=== PATIENT | male | born 1955 | race Caucasian/White ===

== ENCOUNTER 2024-03-03 08:47 | Outpatient (AMB) | payer MEDICARE, SELFPAY ==
--- NOTE | 2024-03-03 08:55 | MHC.OFFVIS ---
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 Pt has seen Dr. Gould in the past at [facility]. Pt states he had his right knee replaced years ago by Dr. Gould. Pt states his left knee pain started about 2 months ago with no known injury. Pt states he has more pain when walking especially down stairs. He has tried Tylenol and ibuprofen which gave him only mild relief. He has also done physical therapy exercises which aggravated his pain. He wishes to hold off on left total knee replacement surgery for as long as possible. Allergies No Known Allergies Allergy (Verified 03/03/24 09:05) Medication List - Last Reconciled 03/04/24 by Fuad Gould MD hydrochlorothiazide 25 mg PO DAILY losartan 25 mg PO DAILY meloxicam 15 mg PO DAILY PRN 3 months omeprazole 20 mg PO DAILY pravastatin 20 mg PO DAILY Physical Exam Const Other: Well-nourished well-developed very friendly male awake alert and oriented x3 in no acute distress Extrem Other: Bilateral lower extremity examination shows good capillary refill, no skin lesions noted, normal sensation light touch Left knee examination shows a moderate effusion, palpable crepitus with range of motion, pain with range of motion, range of motion from -3 degrees to 115 degrees, no instability Office Procedures Joint Injection/Aspiration Joint Injection/Aspiration Primary Site: left knee Prep: site was prepped using aseptic technique Injected: 40 mg of, DepoMedrol and 1% plain lidocaine Procedure: The patient tolerated the procedure well Coding 38240 - Large joint Procedure code (CPT) selection complete Results Reviewed Results Reviewed: X-rays of the patient's left knee show joint space narrowing, subchondral sclerosis most significant in the medial compartment, no acute bony abnormalities Assessment & Plan Assessment & Plan (1) Left knee pain: Code(s): M25.562 - Pain in left knee Category: Medical Plan Mr. Valero presents with left knee pain due to degenerative joint disease. I had a lengthy discussion with the patient regarding the treatment options. The risks and benefits of a left knee cortisone injection were discussed at length with the patient. The patient wished to proceed. Prior to the injection 15 cc of clear fluid were aspirated from his left knee. He tolerated the injection well. He will continue with his activity modifications. I did give him a prescription for meloxicam. Will follow up with me on an as-needed basis should his symptoms not plateau at an unacceptable level over the next few months. Feel free to call me at any time should questions regarding his orthopedic management arise. I spent 21 minutes in reviewing the patient's records and imaging studies, seeing the patient and documenting in the medical record. Orders: Orders XR knee LT 3V 03/03/24 M25.562 - Pain in left knee XR knee RT 1V 03/03/24 M25.562 - Pain in left knee AMB Joint Injection/Aspiration 03/03/24 M25.562 - Pain in left knee Medications: New meloxicam 15 mg PO DAILY PRN 90 tabs 3RF pain 3 months Coding Level of Care Code Est Pt Level 3 (51895) Diagnoses Left knee pain M25.562 CPT Codes Coding - 73216 Large joint: 66011 - Large joint ([id number])
== END 2024-03-03 09:38 | disposition home or self-care (01) ==
PROVIDERS: PCP Physician Assistant Medical; Visit Provider Orthopaedic Surgery
DX: M25.562 Pain in left knee (principal)
CPT/HCPCS: 20610; 99213

== ENCOUNTER 2024-03-03 10:44 | Outpatient (REF) | payer MEDICARE, SELFPAY ==
--- NOTE | ~2024-03-03 | XR_ITS ---
EXAMINATION: XR KNEE, LEFT CLINICAL INFORMATION: Pain. COMPARISON: None available. TECHNIQUE: AP, lateral and sunrise views of the left knee are submitted. FINDINGS: Bony mineralization is normal. There is marked asymmetric narrowing of medial joint space compartment. The lateral and patellofemoral joint space compartments are well-maintained. There is minimal peripheral osteophyte formation of the medial and patellofemoral compartments. A small enthesophyte is seen at the upper pole of patella at quadriceps tendon insertion. There is chondrocalcinosis. No fracture or dislocation is seen. There is a mild varus configuration. There is a small joint effusion. There is no foreign body. XR/XR knee LT 3V IMPRESSION: 1. There is marked arthritic change of the medial joint space compartment of the left knee, and mild osteoarthritic changes seen of the patellofemoral compartment. Existing tube is in mild varus configuration. 3. There is a small joint effusion. 4. There is chondrocalcinosis, which can be associated with gout, CPPD or hypercalcemia. Electronically signed by: Cholo Ellis MD 03/30/2024 07:27 PM EDT
== END 2024-03-03 10:45 | disposition home or self-care (01) ==
LOC: HO.HOSX 10:44
PROVIDERS: Visit Provider Orthopaedic Surgery
DX: M25.562 Pain in left knee (principal); M17.12 Unilateral primary osteoarthritis, left knee; M11.262 Other chondrocalcinosis, left knee
CPT/HCPCS: 20610; 73562; 99212; J1010

== ENCOUNTER 2024-06-02 08:24 | Outpatient (AMB) | payer MEDICARE, SELFPAY ==
--- NOTE | 2024-06-02 08:25 | A.OFFVIS_ITS ---
Intake Visit Reasons: OV - f/u Left knee pain , Right shoulder pain and weakness Intake Note: Vishal is a 69 year old male who presents with complaints of progressively worsening right shoulder pain and weakness. The patient states that he underwent right shoulder arthroscopic surgery several years ago. He got good relief from that surgery initially. Over the last 2 years his right shoulder pain and weakness have gotten worse. He was seen by another orthopedic surgeon who told him that he needs ?shoulder replacement surgery?. The patient has done physical therapy which aggravated his pain. He has also tried Tylenol and anti- inflammatory medicines which gave him minimal relief. The patient did have a cortisone injection given into his left knee on 03/03/2024. He got minimal relief from that injection. He describes his left knee pain as sharp in nature. He did undergo right total knee replacement surgery several years ago. He denies any pain in his right knee. Allergies No Known Allergies Allergy (Verified 06/02/24 08:30) Medication List - Last Reconciled 06/02/24 by Fuad Gould MD hydrochlorothiazide 25 mg PO DAILY losartan 25 mg PO DAILY meloxicam 15 mg PO DAILY PRN 3 months omeprazole 20 mg PO DAILY pravastatin 20 mg PO DAILY Physical Exam Const Other: Well-nourished well-developed very friendly male awake alert and oriented x3 in no acute distress Extrem Other: Bilateral upper extremity examination shows good capillary refill, no skin lesions noted, normal sensation light touch Right shoulder examination shows decreased range of motion when compared to his left shoulder, 4/5 strength with supraspinatus testing, positive impingement signs, no instability Left knee examination shows a minimal effusion, palpable crepitus with range of motion, pain with range of motion, no instability Results Reviewed Results Reviewed: X-rays of the patient's right shoulder taken previously show glenohumeral joint degenerative changes, a type 2 acromion, no acute bony abnormalities X-rays of the patient's left knee taken previously show joint space narrowing, subchondral sclerosis, no acute bony abnormalities Assessment & Plan Assessment & Plan (1) Right shoulder pain: Code(s): M25.511 - Pain in right shoulder Category: Medical (2) Osteoarthritis of left knee: Code(s): M17.12 - Unilateral primary osteoarthritis, left knee Category: Medical Plan Mr. Valero presents with progressively worsening right shoulder pain and weakness most likely due to a full-thickness rotator cuff tear. Thus, I will send the patient for an MRI of his right shoulder for further evaluation. The patient also has left knee pain due to osteoarthritis. He has failed the last 3 months of conservative treatment which has included a home exercise program, topical creams, Tylenol and meloxicam as well as a cortisone injection which gave him no relief. Thus, I will see whether or not the patient's insurance company will cover a viscosupplementation injection, such as Durolane. The patient will contact me prior to his follow-up appointment should any questions or concerns arise. Feel free to call me at any time should questions regarding his orthopedic management arise. I spent 22 minutes in reviewing the patient's records and imaging studies, seeing the patient and documenting in the medical record. Orders: Orders MR shoulder RT wo con Today M25.511 - Pain in right shoulder Coding Level of Care Code Est Pt Level 3 (36604) Complex EM visit Add On G2211 Diagnoses Right shoulder pain M25.511 Osteoarthritis of left knee M17.12
== END 2024-06-02 08:55 | disposition home or self-care (01) ==
PROVIDERS: PCP Physician Assistant Medical; Visit Provider Orthopaedic Surgery
DX: M25.511 Pain in right shoulder (principal); M17.12 Unilateral primary osteoarthritis, left knee
CPT/HCPCS: 99213; G2211

== ENCOUNTER → 2024-06-02 08:24 | Outpatient (BNVA) | payer MEDICARE, SELFPAY | PROVIDERS: PCP Physician Assistant Medical; Visit Provider Orthopaedic Surgery | DX: M25.511 Pain in right shoulder (principal); M17.12 Unilateral primary osteoarthritis, left knee | CPT/HCPCS: 99212 ==

== ENCOUNTER 2024-07-19 09:25 | Outpatient (AMB) | payer MEDICARE, SELFPAY ==
--- NOTE | 2024-07-19 09:28 | A.OFFVIS_ITS ---
Vital Signs 07/19/24 09:34 Height 6 ft Weight 206 lb BMI 27.9 Intake Visit Reasons: Inj- Left knee Euflexxa #1 Intake Note: Vishal is a 69 year old male who presents with complaints of progressively worsening left knee pain. He did undergo right total knee replacement surgery several years ago. He denies any pain in his right knee. He describes his left knee pain as sharp and severe in nature. He has had cortisone injections in the past. The most recent cortisone injection gave him no relief. Has tried physical therapy which aggravated his pain. He has also tried Tylenol and anti- inflammatory medicines which gave him minimal relief. At this point his left knee pain is interfering with his activities of daily living and his ability to sleep well through the night. Allergies No Known Allergies Allergy (Verified 07/19/24 09:34) Medication List - Last Reconciled 07/19/24 by Fuad Gould MD hydrochlorothiazide 25 mg PO DAILY losartan 25 mg PO DAILY meloxicam 15 mg PO DAILY PRN 3 months omeprazole 20 mg PO DAILY pravastatin 20 mg PO DAILY Physical Exam Vital Signs: BMI result Body Mass Index 27.9 Const Other: Well-nourished well-developed very friendly male awake alert and oriented x3 in no acute distress Extrem Other: Bilateral lower extremity examination shows good capillary refill, no skin lesions noted, normal sensation light touch Left knee examination shows a minimal effusion, palpable crepitus with range of motion, pain with range of motion, no instability Office Procedures AMB Joint Injection/Aspiration Joint Injection/Aspiration Primary Site: left knee Prep: site was prepped using aseptic technique Injected: 20 mg of (Euflexxa viscosupplementation) and 1% plain lidocaine Procedure: The patient tolerated the procedure well Coding 05826 - Large joint Procedure code (CPT) selection complete Results Reviewed Results Reviewed: X-rays of the patient's left knee taken previously show joint space narrowing, subchondral sclerosis, no acute bony abnormalities Assessment & Plan Assessment & Plan (1) Osteoarthritis of left knee: Code(s): M17.12 - Unilateral primary osteoarthritis, left knee Category: Medical Plan Mr. Valero presents with progressively worsening left knee pain due to osteoarthritis. The risks and benefits of a series of Euflexxa viscosupplementation injections were discussed at length with the patient. The patient wished to proceed. He tolerated the 1st injection well. He will continue with his home exercise program. He will follow up next week as scheduled. Feel free to call me at any time should questions regarding his orthopedic management arise. I spent 21 minutes in reviewing the patient's records and imaging studies, seeing the patient and documenting in the medical record. Orders: Orders XR shoulder LT min 2V 07/26/24 M25.512 - Pain in left shoulder XR shoulder RT min 2V 07/26/24 M25.511 - Pain in right shoulder AMB Joint Injection/Aspiration Today M17.12 - Unilateral primary osteoarthritis, left knee Coding Level of Care Code Est Pt Level 3 (45119) Complex EM visit Add On G2211 Diagnoses Osteoarthritis of left knee M17.12 CPT Codes Coding - 36957 Large joint: 34095 - Large joint ([id number])
[2024-07-19 09:34] VITALS: BMI 27.9
== END 2024-07-19 10:10 | disposition home or self-care (01) ==
PROVIDERS: PCP Physician Assistant Medical; Visit Provider Orthopaedic Surgery
DX: M17.12 Unilateral primary osteoarthritis, left knee (principal)
CPT/HCPCS: 20610; 99213

== ENCOUNTER → 2024-07-19 09:25 | Outpatient (BNVA) | payer MEDICARE, SELFPAY | PROVIDERS: PCP Physician Assistant Medical; Visit Provider Orthopaedic Surgery | DX: M17.12 Unilateral primary osteoarthritis, left knee (principal) | CPT/HCPCS: 20610; 99212; J2003; J7323 ==

== ENCOUNTER 2024-07-26 08:32 | Outpatient (AMB) | payer MEDICARE, SELFPAY ==
--- NOTE | 2024-07-26 08:37 | MHC.OFFVIS ---
Vital Signs 07/26/24 08:40 Height 6 ft Weight 206 lb BMI 27.9 Intake Visit Reasons: Inj- Left knee Euflexxa #2, Bilateral shoulder pains Intake Note: Vishal is a 69 year old male who presents with complaints of progressively worsening bilateral shoulder pains. He describes his pains as sharp in nature. He did have a Euflexxa injection given into his left knee at his last visit. He got fairly good relief from that injection. He has done physical therapy exercises for both of his shoulders which aggravated his pain. The patient reports weakness when lifting his hands above shoulder height. His shoulder pains have gotten worse over the last few years in spite of continued non operative treatments. He has failed the last 6 weeks of conservative treatment which has included physical therapy exercises, Tylenol and anti-inflammatory medicines. At this point his shoulder pains are interfering with his activities of daily living and his ability to sleep well through the night. The patient did undergo right shoulder arthroscopic surgery several years ago. He got minimal relief from that procedure. At this point is right shoulder pain is more bothersome than his left. Allergies No Known Allergies Allergy (Verified 07/26/24 08:40) Medication List - Last Reconciled 07/26/24 by Fuad Gould MD hydrochlorothiazide 25 mg PO DAILY losartan 25 mg PO DAILY meloxicam 15 mg PO DAILY PRN 3 months omeprazole 20 mg PO DAILY pravastatin 20 mg PO DAILY Physical Exam Vital Signs: BMI result Body Mass Index 27.9 Const Other: Well-nourished well-developed very friendly male awake alert and oriented x3 in no acute distress Extrem Other: Left knee examination shows a moderate effusion, palpable crepitus with range of motion, pain with range of motion, no instability Bilateral shoulder examination shows forward flexion to 120 degrees, external rotation to 20 degrees, pain with range of motion, no instability Office Procedures AMB Joint Injection/Aspiration Joint Injection/Aspiration Primary Site: left knee Prep: site was prepped using aseptic technique Injected: 20 mg of (Euflexxa viscosupplementation) and 1% plain lidocaine Procedure: The patient tolerated the procedure well Coding 67943 - Large joint Procedure code (CPT) selection complete Results Reviewed Results Reviewed: X-rays of the patient's bilateral shoulders taken today show glenohumeral joint degenerative changes, no acute bony abnormalities Assessment & Plan Assessment & Plan (1) Left shoulder pain: Code(s): M25.512 - Pain in left shoulder Category: Medical (2) Osteoarthritis of left knee: Code(s): M17.12 - Unilateral primary osteoarthritis, left knee Category: Medical (3) Right shoulder pain: Code(s): M25.511 - Pain in right shoulder Category: Medical Plan Mr. Valero presents with progressively worsening left knee pain due to osteoarthritis. The risks and benefits of a 2nd Euflexxa injection were discussed at length with the patient. The patient wished to proceed. Prior to the injection I aspirated 10 cc of clear fluid from his left knee. He tolerated the injection well. He also has progressively worsening right shoulder pain and stiffness due to end-stage glenohumeral joint arthritis. He is interested in getting more information regarding reverse total shoulder replacement surgery. Thus, I will have him evaluated by my partner, Dr. Davalos. The patient will follow-up as instructed. Feel free to call me at any time should questions regarding his orthopedic management arise. I spent 21 minutes in reviewing the patient's records and imaging studies, seeing the patient and documenting in the medical record. Orders: Orders AMB Joint Injection/Aspiration Today M25.512 - Pain in left shoulder Coding Level of Care Code Est Pt Level 3 (59655) Complex EM visit Add On G2211 Diagnoses Left shoulder pain M25.512 Osteoarthritis of left knee M17.12 Right shoulder pain M25.511 CPT Codes Coding - 41200 Large joint: 10034 - Large joint ([id number])
[2024-07-26 08:40] VITALS: BMI 27.9
== END 2024-07-26 09:09 | disposition home or self-care (01) ==
PROVIDERS: PCP Physician Assistant Medical; Visit Provider Orthopaedic Surgery
DX: M17.12 Unilateral primary osteoarthritis, left knee (principal); M25.512 Pain in left shoulder; M25.511 Pain in right shoulder
CPT/HCPCS: 20610; 99213

== ENCOUNTER 2024-07-26 09:43 | Outpatient (REF) | payer MEDICARE, SELFPAY ==
--- NOTE | ~2024-07-26 | XR_ITS ---
EXAMINATION: XR SHOULDER 2 OR MORE VIEWS RIGHT HISTORY: M25.511 - Pain in right shoulder COMPARISON: There are no prior studies available for comparison. FINDINGS: Two views of the right shoulder are submitted. Osseous mineralization is normal. There is no fracture or dislocation. There is severe osteoarthritis of the glenohumeral joint with joint space narrowing and osteophyte formation. The AC joint space is preserved. Multiple corticated osseous densities are seen surrounding the shoulder, consistent with loose bodies. XR/XR shoulder RT min 2V IMPRESSION: Severe osteoarthritis of the glenohumeral joint. Multiple loose bodies. Electronically signed by: Vu Medina MD 07/28/2024 01:55 PM EST
--- NOTE | ~2024-07-26 | XR_ITS ---
EXAMINATION: XR SHOULDER 2 OR MORE VIEWS LEFT HISTORY: M25.512 - Pain in left shoulder COMPARISON: There are no prior studies available for comparison. FINDINGS: Two views of the left shoulder are submitted. Osseous mineralization is normal. There is no fracture or dislocation. There is mild glenohumeral and acromioclavicular joint space narrowing. Multiple well-corticated osseous densities are noted about the shoulder consistent with loose bodies. XR/XR shoulder LT min 2V IMPRESSION: Mild glenohumeral and acromioclavicular joint space narrowing. Multiple loose bodies. Electronically signed by: Vu Medina MD 07/28/2024 01:58 PM EST
== END 2024-07-26 09:44 | disposition home or self-care (01) ==
LOC: HO.HOSX 09:43
PROVIDERS: Visit Provider Orthopaedic Surgery
DX: M17.12 Unilateral primary osteoarthritis, left knee (principal); M25.511 Pain in right shoulder; M25.512 Pain in left shoulder; M24.012 Loose body in left shoulder; M19.012 Primary osteoarthritis, left shoulder; M19.011 Primary osteoarthritis, right shoulder
CPT/HCPCS: 20610; 73030; 99212; J2003; J7323

== ENCOUNTER 2024-08-02 08:33 | Outpatient (AMB) | payer MEDICARE, SELFPAY ==
--- NOTE | 2024-08-02 08:38 | MHC.OFFVIS ---
Vital Signs 08/02/24 08:44 Height 6 ft Weight 206 lb BMI 27.9 Intake Visit Reasons: Inj- Left knee Euflexxa #3 Intake Note: Vishal is a 69 year old male who presents today for his 3rd dose of the Euflexxa series on the left knee. He states that he has gotten fairly good relief from the 1st 2 injections. He continues with his home exercise program. Allergies No Known Allergies Allergy (Verified 08/02/24 08:44) Medication List - Last Reconciled 08/02/24 by Fuad Gould MD hydrochlorothiazide 25 mg PO DAILY losartan 25 mg PO DAILY meloxicam 15 mg PO DAILY PRN 3 months omeprazole 20 mg PO DAILY pravastatin 20 mg PO DAILY Physical Exam Vital Signs: BMI result Body Mass Index 27.9 Extrem Other: Left knee examination shows a moderate effusion, palpable crepitus with range of motion, pain with range of motion, no instability Office Procedures AMB Joint Injection/Aspiration Joint Injection/Aspiration Primary Site: left knee Prep: site was prepped using aseptic technique Injected: 20 mg of (Euflexxa viscosupplementation) and 1% plain lidocaine Procedure: The patient tolerated the procedure well Coding 79692 - Large joint Procedure code (CPT) selection complete Results Reviewed Results Reviewed: X-rays of the patient's left knee taken previously show joint space narrowing, subchondral sclerosis, no acute bony abnormalities Assessment & Plan Assessment & Plan (1) Osteoarthritis of left knee: Code(s): M17.12 - Unilateral primary osteoarthritis, left knee Category: Medical Plan Vishal presents with left knee pain due to osteoarthritis. The risks and benefits of a 3rd Euflexxa injection were discussed at length with the patient. The patient wished to proceed. He tolerated the injection well. He will continue with his home exercise program. He will contact me prior to his follow-up appointment in 3 months should any questions or concerns arise. Feel free to call me at any time should questions regarding his orthopedic management arise. I spent 21 minutes in reviewing the patient's records and imaging studies, seeing the patient and documenting in the medical record. Orders: Orders AMB Joint Injection/Aspiration Today M17.12 - Unilateral primary osteoarthritis, left knee Coding Level of Care Code Procedure Only Diagnoses Osteoarthritis of left knee M17.12 CPT Codes Coding - 49859 Large joint: 34931 - Large joint ([id number])
[2024-08-02 08:44] VITALS: BMI 27.9
== END 2024-08-02 08:54 | disposition home or self-care (01) ==
PROVIDERS: PCP Physician Assistant Medical; Visit Provider Orthopaedic Surgery
DX: M17.12 Unilateral primary osteoarthritis, left knee (principal)
CPT/HCPCS: 20610

== ENCOUNTER → 2024-08-02 08:33 | Outpatient (BNVA) | payer MEDICARE, SELFPAY | PROVIDERS: PCP Physician Assistant Medical; Visit Provider Orthopaedic Surgery | DX: M17.12 Unilateral primary osteoarthritis, left knee (principal) | CPT/HCPCS: 20610; J2003; J7323 ==

== ENCOUNTER 2024-09-19 09:52 | Outpatient (RCR) | payer MEDICARE, SELFPAY ==
--- NOTE | 2024-08-29 12:19 | MHC.PT.EP ---
[facility] [place] Office [place] Office [place] Office [address] Georgette Alfonso [address] [phone] F: [phone] F: [phone] F: [phone] F: [phone] Physical Therapy Plan of Care Date of Evaluation: 08/29/24 Date of Surgery: Diagnosis: bilateral shoulder OA; R shoulder severe OA per imaging (RS) Assessment: Vishal is a pleasant, motivated, 69 y.o. male who is referred to PT by Dr. Fuad Gould MD with Dx of bilateral shoulder osteoarthritis, which is severe on R GHJ via x-ray imaging. He has significant pain and audible crepitus with all R shoulder movements, limiting ROM and causing resultant weakness that has caused increased difficulty with all ADLs as he is unable to lift arms overhead and behind his back, making donning/doffing clothes, reaching, driving and working difficult. Pt is a good candidate for MRI of R shoulder due to severity of presentation of symptoms. Poor prognosis for PT as TSA surgery is indicated at this time. Frequency and Duration: The patient will be seen 1x/week for 4 weeks Short Term Goals: 2 weeks Patient demonstrates consistency and independence with HEP to self manage symptoms. 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 Treatment Plan: Modalities to reduce pain, spasms and effusion. Manual therapy to restore motion and function. Therapeutic exercise to improve strength and flexibility. Neuromuscular re-education for posture and balance. Therapeutic activities to return to functional activities of daily living. Electronically signed by: Mare Arevalo, PT, DPT Please sign and return to therapist. Thank you for your referral.
--- NOTE | 2024-09-19 12:36 | MHC.PT.DC ---
[facility] [place] Office [place] Office [place] Office [address] Georgette Alfonso [address] [phone] F: [phone] F: [phone] F: [phone] F: [phone] Physical Therapy Discharge Report Diagnosis: bilateral shoulder OA; R shoulder severe OA per imaging (RS) Date of Surgery: Date of Evaluation: 08/29/24 Date of Discharge: 09/19/24 Treatments to Date: 4 Cancellations to Date: 0 No Shows to Date: 0 Discharge Status: Recommend MD Follow-up Discharge Summary: Vishal completed 4 weeks of skilled PT, without change in sxs. He is discharged from physical therapy this date, recommend MRI with surgical intervention indicated due to severe OA of bilateral GHJ which makes all exercises and manual therapy painful and difficult as he is unable to progress in PT due to the severity of OA. Electronically signed by: Mare Arevalo, PT, DPT Please sign and return to therapist. Thank you for your referral.
== END 2024-09-19 12:36 | disposition home or self-care (01) ==
LOC: HO.PT 09:52
PROVIDERS: PCP Physician Assistant Medical; Visit Provider Orthopaedic Surgery
DX: M25.511 Pain in right shoulder (principal)
CPT/HCPCS: 97110; 97140; 97161

== ENCOUNTER 2024-09-22 10:10 | Outpatient (AMB) | payer MEDICARE, SELFPAY ==
--- NOTE | 2024-09-22 10:11 | A.OFFVIS_ITS ---
Intake Visit Reasons: Right shoulder pain and weakness Intake Note: Mr. Valero is a 69-year-old right-hand dominant male who presents with complaints of progressively worsening right shoulder pain and weakness. The patient did undergo right shoulder arthroscopic surgery several years ago. He got fairly good relief from that surgery initially. He re-injured his shoulder approximately 1 year ago while lifting a heavy object. Since that time he has had difficulty lifting his right hand above shoulder height. He has had injections in the past. The most recent cortisone injection gave him minimal relief. He has also tried Tylenol and meloxicam which gave him only mild relief. The patient did have a right shoulder MRI ordered last year. The MRI was denied by his insurance company because he had not been to formal physical therapy. The patient has been going to formal physical therapy here at [facility] for the last 6 weeks. The therapy has made his pain and weakness worse. Allergies No Known Allergies Allergy (Verified 08/02/24 08:44) Medication List - Last Reconciled 09/22/24 by Fuad Gould MD hydrochlorothiazide 25 mg PO DAILY losartan 25 mg PO DAILY meloxicam 15 mg PO DAILY PRN 3 months omeprazole 20 mg PO DAILY pravastatin 20 mg PO DAILY Physical Exam Const Other: Well-nourished well-developed very friendly male awake alert and oriented x3 in no acute distress Extrem Other: Bilateral upper extremity examination shows good capillary refill, no skin lesions noted, normal sensation light touch Right shoulder examination shows decreased active and passive range of motion when compared to his left shoulder, 4/5 strength with supraspinatus testing, positive impingement signs, no instability Telehealth Telehealth Telehealth Platform: Telephone Location of provider rendering services: practice address Location of patient: address on file Patient Identification confirmed using: Name, : Yes Telehealth method: voice only Patient verbally consented to treatment: Yes Patient verbally consented to billing insurance company: Yes Patient informed of any privacy concerns related to visit: Yes Minutes spent on Phone/Video with Pt.: 12 Results Reviewed Results Reviewed: X-rays of the patient's right shoulder show severe acromioclavicular joint narrowing, moderate glenohumeral joint degenerative changes, a type 2 acromion, no acute bony abnormalities Assessment & Plan Assessment & Plan (1) Rotator cuff insufficiency of right shoulder: Code(s): M25.311 - Other instability, right shoulder Category: Medical Plan Mr. Valero presents with progressively worsening right shoulder pain and weakness most likely due to a full-thickness rotator cuff tear. At this point the patient has completed 6 weeks of formal physical therapy as dictated by his insurance company. I have reordered his right shoulder MRI which will hopefully be approved. I will see him back once the MRI is completed to discuss the findings and treatment options. Feel free to call me at any time should questions regarding his orthopedic management arise. Orders: Orders MR shoulder RT wo con Today M25.311 - Other instability, right shoulder Coding Level of Care Code Tele Est Pt Level 2 (00885) Complex EM visit Add On G2211 Diagnoses Rotator cuff insufficiency of right shoulder M25.311
--- OUTSIDE RECORDS SUMMARY | 2024-09-22 11:54 | XMS_ITS | Clinical Summary ---
Author Organization [facility] Address [address] [facility] [place] [address] Care Team Providers Care Interface Analyst Name Role Phone Unavailable Primary Care Provider Unavailabl e Social History Tobacco Use Types Packs/Day Years Used Date Smoking Tobacco: Never Assessed Sex and Gender Information Value Date Recorded Sex Assigned at Not on file Legal Sex Male 12:53 PM EDT Gender Identity Not on file Sexual Orientation Not on file Plan of Treatment Health Maintenance Due Date Last Done Comments Colorectal Cancer: COLONOSCO PY Screening every 10 yrs (or Modifier) 1954 Depression: Screening Annual ly using PHQ-2/9 in Adults 18 yrs or above (or HM Modifier)([facility]) 1972 Hepatitis C Virus Infection in Adolescents and Adults: Screening (or Modifier) ([facility]) 1972 SDTN Screening Reminder: [place] for all adults ([facility]) 1972 Tobacco Smoking Cessation: i n Adults excluding Women: Behavioral and Pharmacotherapy Interventions ([facility]) 1972 DTaP/Tdap/Td Vaccines ([facility]) (1 - Tdap) 1973 Lipid Screening: Every 5 yrs for Men aged 35+ (or HM Modifier) ([facility]) 1990 Colorectal Cancer Screening 45 -75 Yrs (or HM Modifier ) 1999 Colorectal Cancer: FLEXIBLE SIGMOIDOSCOPY Screening every 5 yrs 1999 Colorectal Cancer: Fecal Imm unochemical Test (FIT) Annually [facility] 1999 Colorectal Cancer: High-sens itivity gFOBT Screening Annually [facility] 1999 Colorectal Cancer: Stool Col oguard Screening every 3 yrs 1999 Colorectal Cancer:CT Colonography Screening every 5 yr s 1999 Pneumococcal Vaccination Scr eening: Patients 65+ yrs of age ([facility]) (1 of 1 - PCV) 2004 Zoster/Shingles Vaccine Seri es Screening: Adults aged 18+ yrs (or HM Modifiers)([facility]) (1 of 2) 2004 Flu Vaccination: Ages 65+: Y early High Dose Recommended (or Modifier)([facility]) 02/18/2024 COVID-19 Vaccine Screening: Initial Series and Booster Status ([facility]) ( - 2023-25 season) 2024 RSV Vaccines (1 - 1-dose 75+ series) 2029 Medical Devices Not on file Insurance [facility] MEDIC[facility]
--- OUTSIDE RECORDS SUMMARY | 2024-09-22 11:54 | XMS_ITS | Encounter Summary ---
Author Organization [facility] Address [address] [place] [address] Care Team Providers Care Welder Production Line Combination Name Role Phone Forest Holloway MD Primary Care Provider [phone] Encounter Details Date Type Department Care Team (Late st Contact Info) Description 07/25/2024 Lab Requisition [facility] - Main Lab [address] [facility] [place] [address] Adriano Zapata PA [address] [place] [address] Benign essential microscopic hematuria Social History Tobacco Use Types Packs/Day Years Used Date Smoking Tobacco: Never Assessed Alcohol Use Standard Drinks/Week Comments Yes 0 (1 standard drink = 0.6 oz pur e alcohol) Sex and Gender Information Value Date Recorded Sex Assigned at Not on file Legal Sex Male 6:59 AM EST Gender Identity Not on file Sexual Orientation Not on file documented as of this encounter Plan of Treatment Not on file documented as of this encounter Procedures Procedure Name Priority Date/Time Associated Diagnosis Comments AP OUTSIDE CONSULT Routine 07/08/2024 12 :00 AM EST Benign essential microscopic hematuria documented in this encounter Results * Anatomic pathology outside consult (07/08/2024 12:00 AM EST) Final Diagnosis Urine, Voided: Negative for high grade urothelial carcinoma. Acute inflammation present. 07/26/2024 9:[address] [facility] Clinical Information Benign essential microscopic hematuria R31.1 [id number] Urine cytology w/Reflex 07/26/2024 9:54 AM EST [facility] Gross Description A. Urine, Voided, : [id number] Recd 1 TP cyto. 07/26/2024 9:54 AM EST [facility] Disclaimer Unless otherwise specified, all tissue is 10% NB formalin fixed and paraffin embedded. Technical pathology services provided by [facility] [address] [facility] [address] [place] [address] (CLIA #[id number]/Magdy Smith MD, Embedded Software Test Engineer) 07/26/2024 9:54 AM EST [facility] Tissue Urine specimen from urethra / Unknown 07/08/2024 07/25/2024 7:38 AM EST us Adriano SHUKLA LAB PATHOLOGY ORDERAB LES Final Result [facility] [address] [place] [address], documented in this encounter Visit Diagnoses Diagnosis Benign essential microscopic hematuria documented in this encounter Care Teams Welder Production Line Combination Relationship Specialty Start Date End Date Forest Holloway MD [address] [address] PCP - General Internal Medicine 03/09/17 documented as of this encounter
--- OUTSIDE RECORDS SUMMARY | 2024-09-22 11:54 | XMS_ITS | Clinical Summary ---
Author Organization [address] [facility] Address [address] [place] [address] Phone Care Team Providers Care Gastroenterology Manager Name Role Phone Forest Holloway MD Primary Care Provider [phone] Encounters Date Type Department Care Team Description 07/25/2024 Lab Requisition [facility] - Main Lab [address] [facility] [place] [address] Adriano Zapata PA Benign essential microscopic hematuria from Last 3 Months Surgical History Surgery Date Site/Laterality Comments TOTAL KNEE ARTHROPLASTY PROCEDURE: ND ARTHRP KNE CONDYLE&PLATU MEDIAL&LAT COMPARTMENTS Medical History Medical History Date Comments Essential hypertension DX:Essent ial hypertension Hyperlipidemia DX:Hyperlipidemi a Esophageal reflux DX:Esophageal reflux Social History Tobacco Use Types Packs/Day Years Used Date Smoking Tobacco: Never Assessed Alcohol Use Standard Drinks/Week Comments Yes 0 (1 standard drink = 0.6 oz pur e alcohol) Sex and Gender Information Value Date Recorded Sex Assigned at Not on file Legal Sex Male 6:59 AM EST Gender Identity Not on file Sexual Orientation Not on file Obstetrics History Last Filed Vital Signs Vital Sign Reading Time Taken Comments Blood Pressure 140/80 01/15/2022 9:54 AM EDT Sit ting L Arm Pulse 85 01/15/2022 9:54 AM EDT Temperature - - Respiratory Rate - - Oxygen Saturation - - Inhaled Oxygen Concentration - - Weight 94.3 kg (208 lb) 01/15/2022 9:54 AM EDT Height 182.9 cm (6') 01/15/2022 9:54 AM EDT Body Mass Index 28.21 01/15/2022 9:54 AM EDT Plan of Treatment Health Maintenance Due Date Last Done Comments DTaP,Tdap,and Td Vaccines (1 - Tdap) 1973 Pneumococcal Vaccine: 50+ Ye ars (1 of 1 - PCV) 2004 Zoster Vaccines (1 of 2) 2004 Abdominal Aortic Aneurysm (A AA) Screen 06/22/2022 Cholesterol Screening (Lipid Panel) 06/22/2022 Colorectal Cancer Screening: Colonoscopy 06/22/2022 Depression Screening 06/22/2022 Falls Risk Assessment 06/22/2022 Hepatitis C Screening 06/22/2022 Medicare Annual Wellness Visit 06/22/2022 Social Influencers of Health Screening 06/22/2022 COVID-19 Vaccine ( - 2023-2 5 season) 2024 Influenza Vaccine (#1) 2024 RSV Immunization Patients 60 + Years Old (1 - 1-dose 75+ series) 2029 HIB Vaccines Aged Out No longer eligi ble based on patient's age to complete this topic HPV Vaccines Aged Out No longer eligi ble based on patient's age to complete this topic Hepatitis A Vaccines Aged Out No long er eligible based on patient's age to complete this topic Hepatitis B Vaccines Aged Out No long er eligible based on patient's age to complete this topic IPV Vaccines Aged Out No longer eligi ble based on patient's age to complete this topic MMR Vaccines Aged Out No longer eligi ble based on patient's age to complete this topic Meningococcal ACWY Vaccine Aged Out N o longer eligible based on patient's age to complete this topic Meningococcal B Vacine Aged Out No lo nger eligible based on patient's age to complete this topic RSV Immunization Patients Un ania 20 months Aged Out No longer eligible b ased on patient's age to complete this topic Varicella Vaccines Aged Out No longer eligible based on patient's age to complete this topic Procedures Procedure Name Priority Date/Time Associated Diagnosis Comments AP OUTSIDE CONSULT Routine 07/08/2024 12 :00 AM EST Benign essential microscopic hematuria from Last 3 Months Results * Anatomic pathology outside consult (07/08/2024 12:00 AM EST) Final Diagnosis Urine, Voided: Negative for high grade urothelial carcinoma. Acute inflammation present. 07/26/2024 9:54 AM EST [facility] Clinical Information Benign essential microscopic hematuria R31.1 [id number] Urine cytology w/Reflex 07/26/2024 9:54 AM EST [facility] Gross Description A. Urine, Voided, : [id number] Recd 1 TP cyto. 07/26/2024 9:54 AM EST [facility] Disclaimer Unless otherwise specified, all tissue is 10% NB formalin fixed and paraffin embedded. Technical pathology services provided by [facility] [address] [facility] [address] [place] [address] (CLIA #[id number]/Magdy Smith MD, Stock Plan Administrator) 07/26/2024 9:54 AM EST [facility] Tissue Urine specimen from urethra / Unknown 07/08/2024 07/25/2024 7:38 AM EST Adriano SHUKLA LAB PATHOLOGY ORDERAB LES Final Result [facility] [address] [place] [address], from Last 3 [place] [address] [employer] - [place] MEDICARE ADVANTAGE Advance Directives Documents on File Type Date Recorded Patient Instrument Technician Expl anation Health Care Decision (hx) 06/27/2017 AD GEORGE DIRECTIVE Health Care Decision (hx) 06/27/2017 AD GEORGE DIRECTIVE Health Care Decision (hx) 06/27/2017 AD GEORGE DIRECTIVE Health Care Decision (hx) 06/27/2017 AD GEORGE DIRECTIVE Care Teams Gastroenterology Manager Relationship Specialty Start Date End Date Forest Holloway MD [address] [place] [address] PCP - General Internal Medicine 03/09/17
--- OUTSIDE RECORDS SUMMARY | 2024-09-22 11:54 | XMS_ITS | Clinical Summary ---
Author Organization [facility] Address [address] [id number] Care Team Providers Care Rand Maker Name Role Phone Forest Holloway MD Primary Care Provider [phone] Allergies Active Allergy Reactions Criticality Noted Date Comments Ibuprofen 08/21/2017 Medications Medication Sig Dispensed Refills Start Date End Date Status hydrochlorothiazide (HYDRODIURIL) tablet 25 mg Take by mouth daily. 0 Active pravastatin (PRAVACHOL) tablet 20 mg Take 20 mg by mouth daily. 0 Active b rxtttru-X-drvaj acid 1 MG capsule Take 1 capsule by mouth daily. 0 Active traMADol (ULTRAM) 50 MG tablet Take 50 mg by mouth every 6 (six) hours as needed for pain. 0 Active naproxen sodium (ANAPROX) 550 MG tablet 0 04/23/2020 Active oxyCODONE (ROXICODONE) 5 MG immediate release tablet Take 1 to 2 tabs every 4 hours as needed for pain 50 tablet 0 07/23/2020 Active amoxicillin (AMOXIL) 500 MG tablet Take 4 tabs 1 hour prior to dental procedure 20 tablet 3 11/07/2021 Active predniSONE (DELTASONE) tablet 20 mg Take 3 tabs for 3 days then take 2 tabs for 3 days then take 1 tab for 3 days 18 tablet 0 11/07/2021 Active losartan (COZAAR) tablet 25 mg Take 25 mg by mouth every morning. 0 10/28/2021 Active Active Problems Problem Noted Date Diagnosed Date Arthritis of both glenohumeral joints 11/21/2021 Patellofemoral arthritis of left knee 11/06/2020 History of right knee joint replacement 11/21/19 18 Family History Medical History Relation Name Comments Heart disease Father Diabetes Mother Heart disease Mother Relation Name Status Comments Father Mother Social History Tobacco Use Types Packs/Day Years Used Date Smoking Tobacco: Never Assessed Sex and Gender Information Value Date Recorded Sex Assigned at Not on file Gender Identity Not on file Sexual Orientation Not on file Job Start Date Occupation Industry Not on file Not on file Not on file Plan of Treatment Health Maintenance Due Date Last Done Comments Hepatitis C Screening 1954 COVID-19 Vaccine (#1) 1954 Depression Screening 1966 Preventative Health Evaluation 1972 DTap / Tdap / Td (1 - Tdap) 1973 Colon Cancer Screening (Colonoscopy) 1999 Shingrix-Zoster Vaccine (1 of 2) 2004 Fall Risk Assessment 2019 Pneumococcal Vaccine (1 of 1 - PCV) 2019 Influenza Vaccine (#1) 2024 RSV Adult > 60+ Yrs or Pregn ant (1 - 1-dose 75+ series) 2029 Hepatitis B Vaccines Aged Out No long er eligible based on patient's age to complete this topic RSV Ped < 20 months Aged Out No longe r eligible based on patient's age to complete this topic Care Teams Rand Maker Relationship Specialty Start Date End Date Forest Holloway MD [address] [place] [address] PCP - General Internal Medicine 03/09/17
== END 2024-09-22 10:26 | disposition home or self-care (01) ==
LOC: HO.HOS 10:10
PROVIDERS: PCP Physician Assistant Medical; Visit Provider Orthopaedic Surgery
DX: M25.311 Other instability, right shoulder (principal)
CPT/HCPCS: 99213; G2211

== ENCOUNTER 2024-10-03 08:00 | Outpatient (REF) | payer MEDICARE, SELFPAY ==
--- NOTE | ~2024-10-03 | MR_ITS ---
EXAMINATION: MRI RIGHT SHOULDER WITHOUT CONTRAST HISTORY: M25.311 - Other instability, right shoulder COMPARISON: Correlation is made to plain films of the right shoulder dated 07/26/2024. TECHNIQUE: Coronal T1, T2, and fat suppressed T2, axial fat suppressed proton density, and sagittal T2 weighted MR images of the right shoulder were obtained. FINDINGS: The examination is limited by patient motion. Bone Marrow: There are multiple small areas of subchondral marrow edema humeral head. Joint effusion: There is a large glenohumeral joint effusion. Numerous loose bodies are noted throughout the glenohumeral joint measuring up to 1.5 cm in size. Glenohumeral joint: There is severe osteoarthritis of the glenohumeral joint with cartilage loss and osteophyte formation. AC joint: There is mild degenerative change of the AC joint. Supraspinatus muscle/tendon: There is irregularity and thinning of the supraspinatus tendon, particularly at its joint surface, with additional intrasubstance T2 hyperintense foci consistent with partial tears. No definite full-thickness tear is seen. Normal muscle bulk. Infraspinatus muscle/tendon: The infraspinatus tendon is intact. Normal muscle bulk. Teres minor muscle/tendon: The teres minor tendon is intact. Normal muscle bulk. Subscapularis muscle/tendon: The subscapularis tendon is intact. Normal muscle bulk. Biceps tendon: The biceps tendon is intact and normally located. Glenoid labrum: The glenoid labrum is grossly unremarkable in appearance, although evaluation is limited by lack of a joint effusion. Other findings: None MR/MR shoulder RT wo con IMPRESSION: 1. Large joint effusion containing numerous loose bodies measuring up to 1.5 cm in size. 2. Severe osteoarthritis of the glenohumeral joint. 3. Findings consistent with partial joint surface tearing of the supraspinatus tendon. No definite full-thickness tear is seen. Electronically signed by: Vu Medina MD 10/03/2024 02:06 PM EDT
== END 2024-10-03 08:01 | disposition home or self-care (01) ==
LOC: HO.MRI 08:00
PROVIDERS: PCP Physician Assistant Medical; Visit Provider Orthopaedic Surgery
DX: M25.311 Other instability, right shoulder (principal); M25.411 Effusion, right shoulder; M19.011 Primary osteoarthritis, right shoulder
CPT/HCPCS: 73221

== ENCOUNTER → 2024-10-03 08:05 | Outpatient (BNV) | payer MEDICARE, SELFPAY | PROVIDERS: PCP Physician Assistant Medical; Visit Provider Radiology Diagnostic Radiology | DX: M25.411 Effusion, right shoulder (principal); M19.011 Primary osteoarthritis, right shoulder; M24.011 Loose body in right shoulder | CPT/HCPCS: 73221 ==

== ENCOUNTER 2024-10-27 09:18 | Outpatient (AMB) | payer MEDICARE, SELFPAY ==
[2024-10-27 09:20] VITALS: BMI 27.9
--- NOTE | 2024-10-27 09:20 | MHC.OFFVIS ---
Vital Signs 10/27/24 09:20 Height 6 ft Weight 206 lb BMI 27.9 Intake Visit Reasons: OV-MRI Shoulder RT review Intake Note: Vishal is a 69 year old right hand dominant male who presents today for review of his right shoulder MRI results. Patient reports he has been taking Meloxicam however he does not think this is touching his pain. He describes his pain as sharp in nature. He has undergone right shoulder surgery in the past. He denies any fevers or chills. He has done physical therapy exercises which gave him minimal relief. He wishes to get through the golf season if possible before having surgery. Allergies No Known Allergies Allergy (Verified 10/27/24 09:23) Medication List - Last Reconciled 10/27/24 by Fuad Gould MD hydrochlorothiazide 25 mg PO DAILY losartan 25 mg PO DAILY meloxicam 15 mg PO DAILY PRN 3 months omeprazole 20 mg PO DAILY pravastatin 20 mg PO DAILY PFSH Social History (Updated 10/24/24 @ 13:17 by JERAMIE Sheehan) Current occupation: rt handed Physical Exam Vital Signs: BMI result Body Mass Index 27.9 Const Other: Well-nourished well-developed very friendly male awake alert and oriented x3 in no acute distress Extrem Other: Bilateral upper extremity examination shows good capillary refill, no skin lesions noted, normal sensation light touch Right shoulder examination shows decreased range of motion when compared to his left shoulder, 4+ out of 5 strength with supraspinatus testing, positive impingement signs, tenderness over his acromioclavicular joint, no instability Results Reviewed Results Reviewed: MRI of the patient's right shoulder show severe acromioclavicular joint narrowing, a type 2 acromion, moderate to severe glenohumeral joint degenerative changes, multiple loose bodies within the glenohumeral joint Assessment & Plan Assessment & Plan (1) Right shoulder pain: Code(s): M25.511 - Pain in right shoulder Category: Medical Plan Mr. Valero presents with right shoulder pain and stiffness due to impingement syndrome, acromioclavicular joint arthritis, glenohumeral joint arthritis, adhesive capsulitis and loose bodies. I had a lengthy discussion with the patient regarding the treatment options. The patient is considering undergoing right shoulder surgery later this year after the golf season. He is not sure if he wishes to proceed with arthroscopic surgery versus total shoulder replacement surgery. The arthroscopic procedure would involve distal clavicle excision, acromioplasty, capsular release and loose body excision. He will continue with his range of motion exercises in the meantime. Feel free to call me at any time should questions regarding his orthopedic management arise. I spent 21 minutes in reviewing the patient's records and imaging studies, seeing the patient and documenting in the medical record. Coding Level of Care Code Est Pt Level 3 (07623) Complex EM visit Add On G2211 Diagnoses Right shoulder pain M25.511
--- OUTSIDE RECORDS SUMMARY | 2024-10-27 10:07 | XMS_ITS | Encounter Summary ---
Author Organization [facility] Address [address] [place] [address] Care Team Providers Care Bulk Cooler Installer Name Role Phone Forest Holloway MD Primary Care Provider [phone] Encounter Details Date Type Department Care Team (Late st Contact Info) Description 10/13/2024 Lab Requisition [facility] - Main Lab [address] [facility] [place] [address] Avelino Arevalo MD [address] [place] [address] Benign essential microscopic hematuria Social History Tobacco [...] Associated Diagnosis Comments AP OUTSIDE CONSULT Routine 10/11/2024 12 :00 AM EDT Benign essential microscopic hematuria documented in this encounter Results * Anatomic pathology outside consult (10/11/2024 12:00 AM EDT) Final Diagnosis A. Urine, Voided, ([id number]): Negative for high grade urothelial carcinoma. 10/14/2024 12:[address] [facility] Clinical Information Benign essential microscopic hematuria R31.1 Urine cytology with reflex [facility] ([facility]) 10/14/2024 12:[address] [facility] Gross Description A. Urine, Voided, ([id number]): Received one ThinPrep slide for cytology. 10/14/2024 12:[address] [facility] Disclaimer Unless otherwise specified, all tissue is 10% NB formalin fixed and paraffin embedded. Technical pathology services provided by [facility] at [address] [facility] [address], [place] [address] (CLIA #[id number]/Sa alejandro Smith MD, Intermediate School Teacher) 10/14/2024 12:[address] [facility] Tissue Urine specimen from urethra / Unknown 10/11/2024 10/13/2024 1:22 PM EDT us Avelino Arevalo MD LAB PATHOLOGY ORDERABLES Fi nal Result [facility] [address] [place] [address], documented in this encounter Visit Diagnoses Diagnosis Benign essential microscopic hematuria documented in this encounter Care Teams Bulk Cooler Installer Relationship Specialty Start Date End Date Forest Holloway MD [address] [address] PCP - General Internal Medicine 03/09/17 documented as of this encounter
--- OUTSIDE RECORDS SUMMARY | 2024-10-27 10:07 | XMS_ITS | Encounter Summary ---
Author Organization [facility] Address [address] [place] [address] Care Team Providers Care Automotive Customer Experience Advisor Name Role Phone Forest Holloway MD Primary Care Provider [phone] Encounter Details Date Type Department Care Team (Late st Contact Info) Description 07/25/2024 Lab Requisition [facility] - Main Lab [address] [facility] [place] [address] Adriano Zapata PA [address] [place] [address] Benign essential microscopic hematuria Social [...] Acute inflammation present. 07/26/2024 9:54 AM EST [facility] ([facility]) [facility] Clinical Information Benign essential microscopic hematuria R31.1 [id number] Urine cytology w/Reflex 07/26/2024 9:54 AM EST [facility] Gross Description A. Urine, Voided, : [id number] Recd 1 TP cyto. 07/26/2024 9:54 AM EST [facility] Disclaimer Unless otherwise specified, all tissue is 10% NB formalin fixed and paraffin embedded. Technical pathology services provided by [facility] [address] [facility] [address] [place] [address] (CLIA #[id number]/Magdy Smith MD, Toll Bridge Operator) 07/26/2024 9:54 AM EST [facility] Tissue Urine specimen from urethra / Unknown 07/08/2024 07/25/2024 7:38 AM EST us Adriano SHUKLA LAB PATHOLOGY ORDERAB LES Final Result [facility] [address] [place] [address], documented in this encounter Visit Diagnoses Diagnosis Benign essential microscopic hematuria documented in this encounter Care Teams Automotive Customer Experience Advisor Relationship Specialty Start Date End Date Forest Holloway MD [address] [address] PCP - General Internal Medicine 03/09/17 documented as of this encounter
--- OUTSIDE RECORDS SUMMARY | 2024-10-27 10:07 | XMS_ITS | Clinical Summary ---
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 Surgical History Surgery Date Site/Laterality Comments TOTAL KNEE ARTHROPLASTY PROCEDURE: OR ARTHRP KNE CONDYLE&PLATU MEDIAL&LAT COMPARTMENTS Medical History [...] Influencers of Health Screening 06/22/2022 COVID-19 Vaccine (2023-2 5 season) 2024 Influenza Vaccine (Season Ended) 2025 RSV Immunization Adult Patie nts (1 - 1-dose 75+ series) 2029 HIB [...] age to complete this topic Meningococcal B Vaccine Aged Out No l onger eligible based on patient's age to complete [...] :00 AM EDT Benign essential microscopic hematuria from 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 Urine, Voided, ([id number]): Negative for high grade urothelial carcinoma. 10/14/2024 12:59 PM EDT [facility] Clinical Information Benign essential microscopic hematuria R31.1 Urine cytology with reflex [facility]ion ([facility]) 10/14/2024 12:59 PM EDT [facility] Gross Description A. Urine, Voided, ([id number]): Received one ThinPrep slide for cytology. 10/14/2024 12:59 PM EDT [facility] Disclaimer Unless otherwise specified, all tissue is 10% NB formalin fixed and paraffin embedded. 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
== END 2024-10-27 09:48 | disposition home or self-care (01) ==
LOC: HO.HOS 09:19
PROVIDERS: PCP Physician Assistant Medical; Visit Provider Orthopaedic Surgery
DX: M25.511 Pain in right shoulder (principal)
CPT/HCPCS: 99213; G2211

== ENCOUNTER → 2024-10-27 09:18 | Outpatient (BNVA) | payer MEDICARE, SELFPAY | PROVIDERS: PCP Physician Assistant Medical; Visit Provider Orthopaedic Surgery | DX: M25.511 Pain in right shoulder (principal) | CPT/HCPCS: 99212 ==

== ENCOUNTER 2024-11-01 09:32 | Outpatient (AMB) | payer MEDICARE, SELFPAY ==
--- NOTE | 2024-11-01 09:37 | A.OFFVIS_ITS ---
Vital Signs 11/01/24 09:43 Height 6 ft Weight 206 lb BMI 27.9 Intake Visit Reasons: Left knee pain Intake Note: Vishal is a 69 year old male who presents with complaints of progressively worsening left knee pain and swelling. The patient describes his pain as sharp in nature. He has tried Tylenol and meloxicam which gave him only mild relief. He has also done physical therapy exercises which aggravated his pain. He wishes to hold off on surgery if at all possible. Allergies No Known Allergies Allergy (Verified 11/01/24 09:45) Medication List - Last Reconciled 11/01/24 by Fuad Gould MD hydrochlorothiazide 25 mg PO DAILY losartan 25 mg PO DAILY meloxicam 15 mg PO DAILY PRN 3 months omeprazole 20 mg PO DAILY pravastatin 20 mg PO DAILY [facility] Social History (Updated 10/24/24 @ 13:17 by JERAMIE Sheehan) Current occupation: rt handed Physical Exam Vital Signs: BMI result Body Mass Index 27.9 Const Other: Well-nourished well-developed very friendly male awake alert and oriented x3 in no acute distress Extrem Other: Bilateral lower extremity examination shows good capillary refill, no skin lesions noted, normal sensation light touch Left knee examination shows a moderate effusion, palpable crepitus with range of motion, pain with range of motion, no instability Office Procedures AMB Joint Injection/Aspiration Joint Injection/Aspiration Primary Site: left knee Prep: site was prepped using aseptic technique Injected: 40 mg of, DepoMedrol and 1% plain lidocaine Procedure: The patient tolerated the procedure well Coding 01972 - Large joint Procedure code (CPT) selection complete Results Reviewed Results Reviewed: X-rays of the patient's left knee taken previously show joint space narrowing, subchondral sclerosis, no acute bony abnormalities Assessment & Plan Assessment & Plan (1) Osteoarthritis of left knee: Code(s): M17.12 - Unilateral primary osteoarthritis, left knee Category: Medical (2) Left knee pain: Code(s): M25.562 - Pain in left knee Category: Medical Plan Mr. Valero presents with left knee pain due to degenerative joint disease. The risks and benefits of a left knee cortisone injection were discussed at length with the patient. The patient wished to proceed. Prior to the injection I aspirated 12 cc of clear fluid from his left knee. He tolerated the injection well. He will contact me prior to his follow-up appointment in 3 months should any questions or concerns arise. Feel free to call at any time should questions regarding his orthopedic management arise. I spent 22 minutes in reviewing the patient's records and imaging studies, seeing the patient and documenting in the medical record. Orders: Orders AMB Joint Injection/Aspiration Today M17.12 - Unilateral primary osteoarthritis, left knee Coding Level of Care Code Est Pt Level 3 (86574) Complex EM visit Add On G2211 Diagnoses Osteoarthritis of left knee M17.12 Left knee pain M25.562 CPT Codes Coding - 90123 Large joint: 28038 - Large joint ([id number])
[2024-11-01 09:43] VITALS: BMI 27.9
--- OUTSIDE RECORDS SUMMARY | 2024-11-01 10:44 | XMS_ITS | Clinical Summary ---
Author Organization [facility] [employer] Address [address] [facility] [place] [address] Care Team Providers Care Professor Of Surgery Name Role Phone Unavailable Primary Care Provider [...] Adults 18 yrs or above (or HM Modifier)([facility]) 1954 Hepatitis C Virus Infection in Adolescents and Adults: Screening (or Modifier) ([facility]) [address] [facility] Screening Reminder: [place] de [place] o for all adults ([facility]) 1972 Tobacco Smoking Cessation: i n Adults excluding Women: Behavioral and Pharmacotherapy Interventions ([facility]) 1972 DTaP/Tdap/Td Vaccines ([facility]) (1 - Tdap) 1973 Lipid Screening: Every 5 yrs for Men aged 35+ (or HM Modifier) ([facility]) 1990 Colorectal Cancer Screening 45 -75 Yrs (or HM Modifier ) 1999 Colorectal Cancer: FLEXIBLE SIGMOIDOSCOPY Screening every 5 yrs 1999 Colorectal Cancer: Fecal Imm unochemical Test (FIT) Annually [facility] 1999 Colorectal Cancer: High-sens itivity gFOBT Screening Annually [facility] 1999 Colorectal Cancer: Stool Col oguard Screening every 3 yrs 1999 Colorectal Cancer:CT Colonography Screening every 5 yr s 1999 Pneumococcal Vaccination Scr eening: Patients 50+ yrs of age ([facility]) (1 of 1 - PCV) 2004 Zoster/Shingles Vaccine Seri es Screening: Adults aged 18+ yrs (or HM Modifiers)([facility]) (1 of 2) 2004 Flu Vaccination: Ages 65+: Y early High Dose Recommended (or Modifier)([facility]) 02/18/2024 COVID-19 Vaccine Screening: Initial Series and Booster Status ([facility]) ( - 2023-25 season) 2024 RSV Vaccines (1 - 1-dose 75+ series) 2029 [employer] Not on file Insurance [facility]
--- OUTSIDE RECORDS SUMMARY | 2024-11-01 10:44 | XMS_ITS | Clinical Summary ---
Author Organization [facility] Address [address] [id number] Care Team Providers Care Firefighter Name Role Phone Forest Holloway MD Primary Care Provider [phone] Allergies Active Allergy Reactions Criticality Noted Date Comments Ibuprofen 08/21/2017 Medications Medication Sig Dispensed Refills Start Date End Date Status hydrochlorothiazide (HYDRODIURIL) tablet 25 mg Take by mouth daily. 0 Active pravastatin (PRAVACHOL) tablet 20 mg Take 20 mg by mouth daily. 0 Active b aphhuyb-S-pkkms acid 1 MG capsule Take 1 capsule [...] age to complete this topic Care Teams Firefighter Relationship Specialty Start Date End Date Forest Holloway MD [address] [facility] [place] [address] PCP - General Internal Medicine 03/09/17
--- OUTSIDE RECORDS SUMMARY | 2024-11-01 10:44 | XMS_ITS | Clinical Summary ---
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 Urine, Voided, ([id number]): Negative for high grade urothelial carcinoma. 10/14/2024 12:59 PM EDT [facility] Clinical Information Benign essential microscopic hematuria R31.1 Urine cytology with reflex [facility]ion ([facility]) 10/14/2024 12:59 PM EDT [facility] Gross Description A. Urine, Voided, ([id number]): Received one ThinPrep slide for cytology. 10/14/2024 12:59 PM EDT [facility] Disclaimer Unless otherwise specified, all tissue is 10% NB formalin fixed and paraffin embedded. 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
--- OUTSIDE RECORDS SUMMARY | 2024-11-01 10:44 | XMS_ITS | Encounter Summary ---
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 07/26/2024 9:[address] [facility] Clinical Information Benign essential microscopic hematuria R31.1 [id number] Urine cytology w/Reflex 07/26/2024 9:54 AM EST [facility] Gross Description A. Urine, Voided, : [id number] Recd 1 TP cyto. 07/26/2024 9:54 AM EST [facility] Disclaimer Unless otherwise specified, all tissue is 10% NB formalin fixed and paraffin embedded. Technical pathology services provided by [facility] [address] [facility] [address] [place] [address] (CLIA #[id number]/Magdy Smith MD, Book Critic) 07/26/2024 9:54 AM EST [facility] Tissue Urine specimen from urethra / Unknown 07/08/2024 07/25/2024 7:38 AM EST us Adriano SHUKLA LAB PATHOLOGY ORDERAB LES Final Result [facility] [address] [place] [address], documented in this encounter Visit Diagnoses Diagnosis Benign essential microscopic hematuria documented in this encounter Care Teams Earthmoving Plant Operator Relationship Specialty Start Date End Date Forest Holloway MD [address] [address] PCP - General Internal Medicine 03/09/17 documented as of this encounter
--- OUTSIDE RECORDS SUMMARY | 2024-11-01 10:44 | XMS_ITS | Encounter Summary ---
Author Organization [facility] Address [address] [place] [address] Care Team Providers Care Senior Accounts Payable Specialist Name Role Phone Forest Holloway MD Primary Care Provider [phone] Encounter Details Date Type Department Care Team (Late st Contact Info) Description 10/13/2024 Lab Requisition [facility] - Main Lab [address] [facility] [place] [address] Avelino Arevalo MD [address] [place] [address] Benign essential microscopic hematuria Social History Tobacco [...] AM EDT) Final Diagnosis A. Urine, Voided, ([id number]): Negative for high grade urothelial carcinoma. 10/14/2024 12:59 PM EDT [facility] Clinical Information Benign essential microscopic hematuria R31.1 Urine cytology with reflex U[facility]Vysion ([facility]) 10/14/2024 12:59 PM EDT [facility] Gross Description A. Urine, Voided, ([id number]): Received one ThinPrep slide for cytology. 10/14/2024 12:59 PM EDT [facility] Disclaimer Unless otherwise specified, all tissue is 10% NB formalin fixed and paraffin embedded. Technical pathology services provided by [facility] at [address] [facility] [address], [place] [address] (CLIA #[id number]/Sa alejandro Smith MD, Animal Pathologist) 10/14/2024 12:59 PM EDT [facility] Tissue Urine specimen from urethra / Unknown 10/11/2024 10/13/2024 1:22 PM EDT us Avelino Arevalo MD LAB PATHOLOGY ORDERABLES Fi nal Result [facility] [address] [place] [address], documented in this encounter Visit Diagnoses Diagnosis Benign essential microscopic hematuria documented in this encounter Care Teams Senior Accounts Payable Specialist Relationship Specialty Start Date End Date Forest Holloway MD [address] [address] PCP - General Internal Medicine 03/09/17 documented as of this encounter
== END 2024-11-01 10:01 | disposition home or self-care (01) ==
LOC: HO.HOS 09:32
PROVIDERS: PCP Physician Assistant Medical; Visit Provider Orthopaedic Surgery
DX: M17.12 Unilateral primary osteoarthritis, left knee (principal)
CPT/HCPCS: 20610; 99213

== ENCOUNTER → 2024-11-01 09:32 | Outpatient (BNVA) | payer MEDICARE, SELFPAY | PROVIDERS: PCP Physician Assistant Medical; Visit Provider Orthopaedic Surgery | DX: M17.12 Unilateral primary osteoarthritis, left knee (principal) | CPT/HCPCS: 20610; 99212; J1010; J2003 ==